=== PATIENT | male | born 1990 | race Caucasian/White ===

== ENCOUNTER 2018-07-15 19:20 | Emergency (ER) | payer MEDICAID ==
[~2018-07-15 19:20] MED LIST: CEPHALEXIN 500 MG CAP PO SCH
[2018-07-15 19:28] VITALS: BP 137/84
[2018-07-15] MEDS ORDERED: fentaNYL 100 MCG/2 ML INJ IVP ONE (19:41)
--- NOTE | 2018-07-15 19:47 | EDPHY ---
General - History Smoking Status: Never smoked Time Seen by Provider: 07/15/18 19:21 Narrative: CLINICAL IMPRESSION: Left hand laceration ASSESSMENT/PLAN: 27-year-old homeless, right-hand dominant, male, intoxicated on methamphetamine , presents to the emergency department with an accidental, self-inflicted laceration to the left hand sustained when he was cutting fabric in his car and slipped cutting his hand with a large kitchen knife. Patient presents by ambulance after he drove to a local fire station because he did not will know where to go. He arrives tearful, anxious, appears intoxicated on methamphetamine but cooperative. He has a very large 8.5 cm laceration extending across the entire thenar eminence of the left hand, through the webspace between thumb and 1st digit an onto the dorsum of the hand. He has obvious flexor tendon injury to the thumb with intact distal 2 point discrimination. Normal range of motion appreciated to fingers 2 through 5 and normal flexion and extension of the wrist. Tetanus reported as up-to-date. I discussed with Dr. Loyd from on-call Hand surgery who would like the patient irrigated, loosely sutured shot, and placed in a volar splint with fingers and thumb in gentle flexion. Patient was also seen and examined by Dr. Hardy. Patient was given an initial dose of Keflex in the emergency department. Patient does not own a cell phone, reports he is homeless living out of his car and had plan to go [facility]. His parents are apparently in [place]. He has a sister who lives in [place] but could not remember her phone number nor does he have a copy of it on his belongings and we were unable to reach her or any other family members or friends. We do not have a showcase maker at this time in the ED. Patient does not wish to be admitted. I have emphasized the importance that he see the orthopedic hand specialist as he will ultimately need surgery to repair the tendons in his hand. Ortho is expecting to see him tomorrow and I explained that the patient will need to call to make this appointment. We called the fire department where his car was left who reported to us that his window was broken, and that the mena that he uses for the car was bent and they were unable to open the door with it, however patient tells me that the mena does in fact work to turn the car on. He wishes to go back to his car tonight and drive to his sister's house in [place]. He did occasionally appear paranoid in the ED feeling as though staff was talking about him and continued to be tearful that he could not talk to family members. I believe this is secondary to his methamphetamine use today. While we were working to map patient's prescriptions he fled the emergency department without any of his discharge papers, specialist follow-up contact information, or antibiotics. DIFFERENTIAL DIAGNOSIS: includes but not limited to laceration of tendon or vascular structure, underlying fracture, laceration with retained FB ED PROCEDURES: Laceration Repair Verbal consent obtained by patient. Risks discussed, including but not limited to infection, pain, retained foreign body, need for additional repair, poor cosmetic result, tendon damage, nerve damage, poor wound healing, vascular damage. Alternatives to repair discussed. [place] protocol used to establish correct patient, procedure, equipment, direct support professional, and site. Anesthesia obtained by local infiltration. Anesthetized with 0.5% bupivacaine with epi. Laceration location left hand, length 8.5 cm, depth 5 mm, Repair type simple. Patient was prepped and draped in usual sterile fashion. Hemostasis achieved with direct pressure. Wound explored through full range of motion and entire depth of wound probed and visualized with gloved finger. Positive suspicion for nerve and tendon damage, no evidence to suggest underlying fracture, vascular damage, foreign body, or contamination. Area was cleansed with Shur- Clens and thoroughly irrigated with sterile saline as per protocol. No foreign body or material removed. Repair method 4 0 Prolene simple interrupted suture. Seventeen sutures placed. Well aligned, closely approximated. wound was dressed with nonstick dressing. Patient tolerated well with no immediate complications. Wound care: Clean and dry x 24 hours, gently clean with soap and water, cover with topical antibiotic ointment/bandage. Suture/Staple removal: By orthopedic hand surgeon Procedure: Splint placement. A volar left short hand with fingers and thumb in flexion splint was applied. After application of the splint I returned and re-examined the patient. The splint was adequately immobilizing the joint and distal to the splint the patient's circulation and sensation was intact. 7:45 p.m.: Case discussed with Dr. Loyd, on-call for hand, he has requested that the patient have the wound irrigated, loosely tacked shut, spoke splinted in a volar splint with all fingers and thumb flexed, started on Keflex , and follow-up in clinic next week. CHIEF COMPLAINT: Laceration HPI: 27-year-old [id number] male presents to the emergency department by ambulance from a local fire department where he drove after he accidentally cut his left hand. Patient reports he was using a large kitchen knife to cut fabric in his car to make a headband. Patient is homeless and lives in his car , states the non serrated knife slipped and he lacerated his hand. He then became scared and did know what to do, drove around for 20 min before being directed to a fire department. They applied pressure and called the ambulance. Patient is very tearful and anxious on arrival, states "I have had a very bad week". He is concerned about losing his hand. He admits to methamphetamine abuse, abused IV methamphetamine 2 days ago and 8 methamphetamine today. He states he drinks most days. He states he struggles with depression and anxiety but is not medicated nor does he see a counselor. He is not feeling suicidal or homicidal. He denies lacerating himself intentionally. He is asking to speak to his mother and sister. He reports his sister lives locally. He states his tetanus is up-to-date and PAST MEDICAL HISTORY: Reported history of depression not on meds Pertinent Past Surgical History: None reported Social History: Tetanus up-to-date REVIEW OF SYSTEMS: All other systems negative Constitutional: No fever, no chills Musculoskeletal: No deformity, positive for joint pain Skin: Large laceration to left hand Neurological: [Reports sensory loss and weakness to left hand and thumb PHYSICAL EXAM: General Appearance: [Alert, oriented, crying, anxious, hypertensive, tachycardic, under the influence of meth. Neurological: Alert and oriented x 3 Skin: very large, 8.5 cm laceration to left hand extending across entire thenar eminence, through webspace between thumb and 2nd finger, and onto dorsum of hand. Musculoskeletal: Obvious injury to flexor pollicis longus and possibly flexor pollicis brevis. EPL appears intact. Full range of motion of 2nd 3rd 4th and 5th fingers. Intact flexion and extension of the wrist. Subjective decreased sensation to the thumb although two-point discrimination is intact. MEDICAL DECISION MAKING: Patient was seen independently. Secondary supervising physician at time of evaluation was Dr Hardy. Diagnosis: Large left hand laceration with flexor tendon injury . New, requires workup Summary: See assessment and plan for summary of ED visit Discussed patient with another provider Dr. Hardy, Dr. Loyd Patient Progress: patient left emergency department without discharge papers and antibiotics. (Eduardo Saucedo) Discussion: I evaluated and participated in the management of the patient. I also evaluated the patient independently. My co-signature indicates that I have reviewed this chart and I agree with the findings and plan of care as documented. My personal H&P findings include: 27-year-old male, homeless, residing in his car, presents with a significant left palmar laceration after cutting it with a kitchen knife. Patient reports using methamphetamine today. Examination reveals 8 cm laceration across the palmar aspect of the left hand, extending across the 1st dorsal web space. Patient is unable to flex the thumb. Bleeding is well controlled. Radial and ulnar pulses intact. Patient's course was discussed with Dr. Loyd. Will irrigate extensively, loosely close the skin, splint the patient, and follow up tomorrow Dr. Loyd's office. (Deidra Hardy) - Objective Vital Signs: Initial Vital Signs Temperature (C) 36.9 C 07/15/18 19:25 Heart Rate 106 H 07/15/18 19:25 Respiratory Rate 16 07/15/18 19:25 Blood Pressure 137/84 H 07/15/18 19:25 O2 Sat (%) 98 07/15/18 19:25 O2 Delivery Mode Room Air Allergies/Adverse Reactions: No Known Allergies Allergy (Unverified 07/15/18 19:28) Home Medications: Medication Instructions Recorded Cephalexin [Keflex] 500 mg PO QID #40 cap 07/15/18 Medications Given: Discontinued Medications Cephalexin HCl (Keflex) 500 mg PO EDNOW ONE PRN Reason: Protocol Stop: 07/15/18 20:47 Last Admin: 07/15/18 20:50 Dose: 500 mg Fentanyl (Sublimaze) 50 mcg IVP EDNOW ONE Stop: 07/15/18 19:42 Last Admin: 07/15/18 19:45 Dose: 50 mcg Departure - Departure Disposition: Home, Routine, Self-Care Clinical Impression: Laceration of hand Condition: Good Instructions: Laceration (ED), Tendon Laceration (ED) Additional Instructions: DISCHARGE INSTRUCTIONS FROM YOUR DOCTOR Thank you for visiting our emergency department today. You were treated by a physician assistant chief of police today and your case was reviewed with our ED Attending physician. Please keep in mind that discharge from the emergency department does not mean that there is nothing wrong - it simply means that we have not identified an emergency condition that requires further evaluation or treatment in the hospital. You should always plan to follow up with primary care for re- evaluation of your condition in the next 2-3 days. If you have been referred to a specialist, please call as soon as possible (today or tomorrow) to schedule your follow up appointment at the appropriate time. YOU HAVE A SEVERE LACERATION TO YOUR LEFT HAND THAT INJURED TENDONS, WILL NEED SURGERY, AND WILL NEED TO BE SEEN BY THE ORTHOPEDIC HAND SPECIALIST TOMORROW. WE SPOKE WITH DR. LOYD, THE HAND SURGEON, WHO WOULD LIKE TO SEE YOU TOMORROW IF HIS OFFICE. YOU NEED TO CALL THEIR OFFICE IN THE MORNING, LET THEM KNOW THE EMERGENCY DEPARTMENT PROVIDER SPOKE TO DR. LOYD ABOUT YOUR LACERATION AND HE WANTED TO SEE YOU MONDAY. PLEASE KEEP THE SPLINT THAT WE PLACED IN THE EMERGENCY DEPARTMENT ON YOUR HAND UNTIL YOU ARE SEEN BY THE SOLDERER. WE ALSO GAVE YOU A COURSE OF ANTIBIOTICS THAT YOU NEED TO TAKE DIRECTED. IF YOU ARE HAVING TROUBLE CONTACTING THE SOLDERER OR NEED HELP FACILITATING AN APPOINTMENT, PLEASE CALL OR RETURN TO THE EMERGENCY DEPARTMENT AND OUR PIER MASTER WILL BE HAPPY TO HELP YOU. THE PHONE NUMBER AT THE EMERGENCY DEPARTMENT IS [phone]. RETURN TO THE EMERGENCY DEPARTMENT SOONER FOR SEVERE HAND PAIN, FEVER, OR ANY OTHER CONCERNS. People present with illnesses and injuries in different ways, and it is always possible that we have missed something. You may always return for re-evaluation if symptoms worsen or if they are not improving or if you develop new/different symptoms. Again, thank you for choosing our emergency department. We hope that you feel better. Referrals: Patient,NotPresent [Unknown] - As per Instructions Liang Loyd MD [Medical Doctor] - 1 day without fail Prescriptions: Cephalexin [Keflex] 500 mg PO QID #40 cap
[2018-07-15] MEDS ORDERED: CEPHALEXIN 500 MG CAP PO ONE (20:46)
--- NOTE | 2018-07-16 18:33 | ASMTCMCOM ---
CM Note CM Note Notes: Pt was seen in the ED last night outside of CM hours. Pt was high on meth at the time that he cut his hand and when d/c'd from the ED he was provided a referral to the on-call ortho Dr Loyd at [facility] ([phone]) w/instructions to followup within 1 day without fail. Out of concern for pt not remembering the ED DC instructions and/or not following up and due to the pt not having a phone # listed; CM was requested to see if pt is connected with any community resources and if so, to see if they know how to get in contact with the pt and relay the message that pt really needs to get followup w/Dr Loyd today or ANTONIO. CM called [facility] this afternoon and they had not heard from the pt at that time. CM called [facility] and he is not in their system; they will pass along a message to the Homeless Outreach RN Bekah to keep an eye out for the pt and assist w/ followup if possible. CM called [facility] and spoke w/Hayley; they do not have the pt in their system either. CM called [facility] and spoke w/Arlene and also w/[facility] and spoke w/Gris; neither of them are able to confirm or deny whether pt is in their system but if he is or if he presents to either location, they will relay the message for followup care coordination needs. CM called [facility] and they are also unable to confirm or deny whether pt is in their system but they will post a note on their message board to have pt call [facility] [place]up w/Dr Evert ALVAREZ. CM to e-mail a referral to [facility]. CM available for further assistance if needed. Date Signed: 07/16/2018 05:11 PM Electronically Signed By:Ya Mane RN
== END 2018-07-15 21:37 | disposition home or self-care (01) ==
PROC: 0HQGXZZ Repair Left Hand Skin, External Approach (ICD-10-PCS; principal; 2018-07-15)
DX: S61.412A Laceration without foreign body of left hand, initial encounter (principal); S66.922A Laceration of unspecified muscle, fascia and tendon at wrist and hand level, left hand, initial encounter; W26.0XXA Contact with knife, initial encounter; Y93.H9 Activity, other involving exterior property and land maintenance, building and construction; Y92.810 Car as the place of occurrence of the external cause; F32.9 Major depressive disorder, single episode, unspecified; Z59.0 Homelessness
CPT/HCPCS: 96374; J3010